=== PATIENT | male | born 1960 ===

== ENCOUNTER 2016-09-25 18:27 | Inpatient (IN) | payer MEDICAID ==
[2016-09-25 18:52] VITALS: BMI 25.7
[2016-09-25] MEDS ORDERED: Sodium Chloride 0.9% 1,000 ML IV ONE (19:56)
[2016-09-25] MEDS ORDERED: Albuterol-Ipratrop 3 mg / 0.5 (3 ml) UD INH STA (19:57)
--- NOTE | 2016-09-25 19:59 | C.PDOC ---
History Of Present Illness 56 y/o male referred to ER by Dr. Giles for 3 days of fevers. Patient previously treated as outpatient with Levaquin and Augmentin. Now presents with resulting hypothermia. [place] [facility] [place], with supposedly negative workup. Denies cough, SOB, chest pain, nausea, vomiting, or other associated symptoms. Time Seen by Provider: 09/25/16 19:50 Chief Complaint (Nursing): Fever History Per: Patient History/Exam Limitations: no limitations Onset/Duration Of Symptoms: Days Current Symptoms Are (Timing): Still Present Associated Symptoms: Fever. denies: Cough, Neck Pain, Vomiting, Diarrhea Ear Symptoms: Bilateral: None Recent travel outside of the [place]: No Past Medical History Reviewed: Historical Data, Nursing Documentation, Vital Signs Vital Signs: Last Vital Signs Temp 97.8 F 09/25/16 19:37 Pulse 104 H 09/25/16 22:09 Resp 12 09/25/16 22:09 BP 105/66 09/25/16 22:09 Pulse Ox 100 09/25/16 22:09 - Medical History PMH: HTN, Hypercholesterolemia Surgical History: Appendectomy Family History: States: No Known Family Hx - Social History Hx Alcohol Use: Yes Hx Substance Use: No - Immunization History Hx Tetanus Toxoid Vaccination: No Hx Influenza Vaccination: No Hx Pneumococcal Vaccination: No Review Of Systems Except As Marked, All Systems Reviewed And Found Negative. Constitutional: Positive for: Fever Cardiovascular: Negative for: Chest Pain, Palpitations Respiratory: Negative for: Cough, Shortness of Breath, Wheezing Gastrointestinal: Negative for: Nausea, Vomiting Skin: Negative for: Rash Neurological: Negative for: Headache Physical Exam - Physical Exam Appears: Non-toxic, No Acute Distress Skin: Warm, Dry, Pale Head: Atraumatic, Normacephalic Eye(s): bilateral: Normal Inspection Oral Mucosa: Moist Chest: Symmetrical Cardiovascular: Rhythm Regular Respiratory: No Rales, No Rhonchi, No Wheezing, Other (egophony and decreased breath sounds RL lobe ) Gastrointestinal/Abdominal: Soft, No Tenderness Back: Normal Inspection Extremity: Normal ROM, Capillary Refill (< 2 sec. ) Neurological/Psych: Oriented x3, Normal Speech, Normal Cognition ED Course And Treatment - Laboratory Results Result Diagrams: 09/25/16 20:18 09/25/16 20:18 Lab Interpretation: Abnormal (mild elev glu, flu swab neg.) ECG: Interpreted By Me ECG Rhythm: Sinus Rhythm ECG Interpretation: Normal Rate From EC O2 Sat by Pulse Oximetry: 99 (RA) Pulse Ox Interpretation: Normal - Radiology CXR: Interpreted by Me CXR Interpretation: Yes: Infiltrates (+RLL) Reevaluation Time: 21:39 Reassessment Condition: Improved - Physician Consult Information Outcome Of Conversation: 1819: dw Dr.Kirit Giles- presented pt, asks to adm to Dr. David Almanzar. 1899 and 2129: d/w Dr. David Almanzar, ok to tele obs. Medical Decision Making Medical Decision Making: previously on Augmentin and Levaquin (with diarrhea now) consider refined abx choices as inpt- will defer to Dr. Almanzar Disposition Doctor Will See Patient In The: Hospital Counseled Patient/Family Regarding: Studies Performed, Diagnosis - Disposition Disposition: HOSPITALIZED Disposition Time: 21:30 Condition: GOOD - Clinical Impression Clinical Impression: Pneumonia - Scribe Statement The provider has reviewed the documentation as recorded by the Alissa Osman Provider Scribe Attestation: All medical record entries made by the Scribe were at my direction and personally dictated by me. I have reviewed the chart and agree that the record accurately reflects my personal performance of the history, physical exam, medical decision making, and the department course for this patient. I have also personally directed, reviewed, and agree with the discharge instructions and disposition.
[2016-09-25] MEDS ORDERED: Sodium Chloride 0.9% 1,000 ML ONE (20:22)
[2016-09-25] MEDS ORDERED: Albuterol-Ipratrop 3 mg / 0.5 (3 ml) UD ONE (20:24)
[2016-09-25 20:25] LABS: BASO % 0.5 % (0.0-2.0); EOS # 0.1 K/uL (0.0-0.7); EOS % 0.9 % (0.0-4.0); HEMATOCRIT 30.3 % (35.0-51.0); LYMPH # 0.6 K/uL (1.0-4.3); MEAN CELL VOLUME 77.3 fL (80.0-94.0); MEAN CORPUSCULAR HEMOGLOBIN 25.5 pg (27.0-31.0); MEAN PLATELET VOLUME 8.7 fL (7.2-11.7); MONO # 0.2 K/uL (0.0-0.8); MONO % 3.3 % (0.0-10.0); PLATELET COUNT 265 K/uL (130-400); RED CELL DISTRIBUTION WIDTH 14.9 % (11.5-14.5); WHITE BLOOD COUNT 6.5 K/uL (4.8-10.8)
[2016-09-25 20:32] LABS: CHLORIDE 97 mmol/L (98-107)
[2016-09-25 20:33] LABS: POTASSIUM 3.5 mmol/L (3.6-5.2); SODIUM 133 mmol/L (132-148)
[2016-09-25 20:35] LABS: ALB/GLOB RATIO 0.9 (1.0-2.1); ALKALINE PHOSPHATASE 104 U/L (38-126); ALT/SGPT 130 U/L (21-72); AST/SGOT 253 U/L (17-59); BILIRUBIN,TOTAL 0.9 mg/dL (0.2-1.3); BLOOD UREA NITROGEN 23 mg/dL (9-20); CALCIUM 8.3 mg/dl (8.6-10.4); CARBON DIOXIDE 23 mmol/L (22-30); GFR AFRICAN-AMERICAN > 60; GLUCOSE,RANDOM 178 mg/dL (75-110); TOTAL PROTEIN 7.1 g/dL (6.3-8.3)
[2016-09-25 21:33] LABS: EOSINOPHIL 1 % (0-4); NEUTROPHIL 81 % (50-75); TOTAL CELLS COUNTED 100
[2016-09-25] MEDS ORDERED: Azithromycin 500 MG in Sodium Chloride 0.9% 250 ML IVPB STA (21:52)
[2016-09-25] MEDS ORDERED: cefTRIAXone IV 1 gm in Dextros 50 ML IV ONE (21:52)
[2016-09-25] MEDS ORDERED: cefTRIAXone IV 1 gm in Dextros 50 ML IVPB ONE (21:57)
[2016-09-25] MEDS ORDERED: Azithromycin 500mg/250ML NS 500 MG/250 ML BAG IVPB ONE (22:01)
[2016-09-25 23:05] LABS: IRON 33 ug/dL (49-181)
[2016-09-26 01:03] VITALS: RESP 20
[2016-09-26] MEDS ORDERED: Loperamide Hydrochloride 1 mg/5 ml Cup PO ONE (03:52)
[2016-09-26] MEDS: Saccharomyces Boulardi 250 mg Cap PO SCH ×3 (04:16→18:36)
--- NOTE | 2016-09-26 07:53 | RAD ---
HISTORY: Shortness of breath COMPARISON: 09/13/2016 TECHNIQUE: Chest PA and lateral FINDINGS: LUNGS: Prominent confluent airspace consolidative changes in the right mid to lower lung zone with associated trace right pleural effusion. Biapical pleural thickening with upper lobe granulomatous changes. Diffuse increased interstitial lung markings. Bilateral hilar prominence. PLEURA: As above. CARDIOVASCULAR: Normal. OSSEOUS STRUCTURES: Degenerative changes in the spine and shoulders. VISUALIZED UPPER ABDOMEN: Normal. OTHER FINDINGS: None. IMPRESSION: Prominent confluent airspace consolidative changes in the right mid to lower lung zone with associated trace right pleural effusion. Biapical pleural thickening with upper lobe granulomatous changes. Diffuse increased interstitial lung markings. Bilateral hilar prominence.
[2016-09-26] MEDS ORDERED: Albuterol 0.083% Inhal Sol (2.5 mg/3 mL) UD INH PRN (08:20)
--- NOTE | 2016-09-26 11:04 | CP.PCM.HP ---
History of Present Illness - History of Present Illness History of Present Illness: 56-year-old male referred to ER by Dr. Phipps for 3 days of fevers. Patient previously treated as outpatient with Levaquin and Augmentin. Now presents with resulting hypothermia. Patient reportedly seen at my office 4 days ago, with supposedly negative workup. Patient denies cough, SOB, chest pain, no nausea, vomiting or any other associated symptoms. Present on Admission - Present on Admission Any Indicators Present on Admission: No Past Patient History - Infectious Disease Hx of Infectious Diseases: None - Past Medical History & Family History Past Medical History?: Yes - Past Social History Smoking Status: Former Smoker - CARDIAC Hx Cardiac Disorders: Yes Hx Hypercholesterolemia: Yes Hx Hypertension: Yes - PULMONARY Hx Respiratory Disorders: No - NEUROLOGICAL Hx Neurological Disorder: No - HEENT Hx HEENT Problems: No - RENAL Hx Chronic Kidney Disease: No - ENDOCRINE/METABOLIC Hx Endocrine Disorders: Yes Hx Diabetes Mellitus Type 2: Yes - HEMATOLOGICAL/ONCOLOGICAL Hx Blood Disorders: No Hx Blood Transfusions: No Hx Blood Transfusion Reaction: No - INTEGUMENTARY Hx Dermatological Problems: Yes Other/Comment: ITCHINSS BOTH FEET USES CREAM - MUSCULOSKELETAL/RHEUMATOLOGICAL Hx Musculoskeletal Disorders: No Hx Falls: No - GASTROINTESTINAL Hx Gastrointestinal Disorders: No - GENITOURINARY/GYNECOLOGICAL Hx Genitourinary Disorders: No - PSYCHIATRIC Hx Psychophysiologic Disorder: No Hx Substance Use: No - SURGICAL HISTORY Hx Surgeries: Yes Hx Appendectomy: Yes - ANESTHESIA Hx Anesthesia: Yes Hx Anesthesia Reactions: No Hx Malignant Hyperthermia: No Meds Home Medications: Home Medication List Medication Instructions Recorded Confirmed Type Amoxicillin/Clavulanate [Augmentin 1 tab PO BID #10 tab 09/29/16 Rx 875 MG-125 MG] Fluconazole [Diflucan] 100 mg PO DAILY #4 tab 09/29/16 Rx Allergies/Adverse Reactions: Allergies Allergy/AdvReac Type Severity Reaction Status Date / Time No Known Allergies Allergy Verified 09/25/16 19:42 Physical Exam - Constitutional Appears: Well - Head Exam Head Exam: ATRAUMATIC, NORMAL INSPECTION, NORMOCEPHALIC - Eye Exam Eye Exam: EOMI, Normal appearance, PERRL Pupil Exam: NORMAL ACCOMODATION, PERRL - ENT Exam ENT Exam: Mucous Membranes Moist, Normal Exam - Neck Exam Neck exam: Positive for: Normal Inspection - Respiratory Exam Respiratory Exam: Decreased Breath Sounds - Cardiovascular Exam Cardiovascular Exam: REGULAR RHYTHM, +S1, +S2 - GI/Abdominal Exam GI & Abdominal Exam: Diminished Bowel Sounds, Soft - Rectal Exam Rectal Exam: Deferred Results - Vital Signs Recent Vital Signs: Last Vital Signs Temp 98.7 F 09/26/16 08:00 Pulse 99 H 09/26/16 08:00 Resp 20 09/26/16 08:00 BP 116/78 09/26/16 08:00 Pulse Ox 97 09/26/16 08:00 - Labs Result Diagrams: 09/29/16 08:17 09/29/16 08:17 Labs: Laboratory Results - last 24 hr 09/25/16 09/26/16 22:41 03:40 POC Glucose (mg/dL) 298 H Iron 33 L TIBC 317 % Saturation 10 L Assessment & Plan (1) Pneumonia Status: Acute - Assessment and Plan (Free Text) Plan: Labs and meds reviewed Blood cultures Started on IV fluids Solu-Medrol Azithromycin Ceftriaxone
[2016-09-26] MEDS: (Novolin R) Insulin Human Regular 100 units/ml vial SC SCH ×3 (11:55→21:58)
--- NOTE | 2016-09-26 17:39 | CP.PCM.CON ---
History of Present Illness - History of Present Illness History of Present Illness: 56 y/o male referred to ER by Dr. Giles for 3 days of fevers. Patient previously treated as outpatient with Levaquin and Augmentin. Now presents with resulting hypothermia. Patient reportedly seen at [facility] [place] days ago, with supposedly negative workup. Denies cough, SOB, chest pain, nausea, vomiting, or other associated symptoms. - Medical History PMH: HTN, Hypercholesterolemia Surgical History: Appendectomy Family History: States: No Known Family Hx Review of Systems - Constitutional Constitutional: As Per HPI, Chills, Fatigue, Fever - EENT Eyes: absent: As Per HPI, Blind Spots, Blurred Vision, Change in Vision, Decreased Night Vision, Diplopia, Discharge, Dry Eye, Exophthalmos, Floaters, Irritation, Itchy Eyes, Loss of Peripheral Vision, Pain, Photophobia, Requires Corrective Lenses, Sees Flashes, Spots in Vision, Tunnel Vision, Other Visual Disturbances, Loss of Vision, Other Ears: absent: As Per HPI, Decreased Hearing, Ear Discharge, Ear Pain, Tinnitus, Abnormal Hearing, Disequilibrium, Dizziness, Other Nose/Mouth/Throat: absent: As Per HPI, Epistaxis, Nasal Congestion, Nasal Discharge, Nasal Obstruction, Nasal Trauma, Nose Pain, Post Nasal Drip, Sinus Pain, Sinus Pressure, Bleeding Gums, Change in Voice, Dental Pain, Dry Mouth, Dysphagia, Halitosis, Hoarsness, Lip Swelling, Mouth Lesions, Mouth Pain, Odynophagia, Sore Throat, Throat Swelling, Tongue Swelling, Facial Pain, Neck Pain, Neck Mass, Other - Cardiovascular Cardiovascular: absent: As Per HPI, Acrocyanosis, Chest Pain, Chest Pain at Rest , Chest Pain with Activity, Claudication, Diaphoresis, Dyspnea, Dyspnea on Exertion, Edema, Irregular Heart Rhythm, Pain Radiating to Arm/Neck/Jaw, Leg Edema, Leg Ulcers, Lightheadedness, Orthopnea, Palpitations, Paroxysmal Nocturnal Dyspnea, Pedal Edema, Radiating Pain, Rapid Heart Rate, Slow Heart Rate, Syncope, Other - Respiratory Respiratory: As Per HPI, Cough, Dyspnea. absent: Hemoptysis - Gastrointestinal Gastrointestinal: absent: As Per HPI, Abdominal Pain, Belching, Bloating, Change in Bowel Habits, Change in Stool Character, Coffee Ground Emesis, Constipation, Cramping, Diarrhea, Dyspepsia, Dysphagia, Early Satiety, Excessive Flatus, Fecal Incontinence, Heartburn, Hematemesis, Hematochezia, Loose Stools, Melena, Nausea, Odynophagia, Temesmus, Vomiting, Other - Genitourinary Genitourinary: absent: As Per HPI, Change in Urinary Stream, Difficulty Urinating, Dysuria, Flank Pain, Hematuria, Pyuria, Nocturia, Urinary Incontinence, Urinary Frequency, Urinary Hesitance, Urinary Urgency, Voiding Freq/Small Amts, Freq UTI, Hx Renal/Bladder Calculi, Hx /Renal Surgery, Bladder Distension, Other - Musculoskeletal Musculoskeletal: absent: As Per HPI, Abnormal Gait, Arthralgias, Atrophy, Back Pain, Deformity, Joint Swelling, Limited Range of Motion, Loss of Height, Muscle Cramps, Muscle Weakness, Myalgias, Neck Pain, Numbness, Radiating Pain into Limb, Stiffness, Tingling, Other - Integumentary Integumentary: absent: As Per HPI, Acne, Alopecia, Bleeding Lesions, Change in Hair, Change in Nails, Change in Pigmentation, Changing Lesions, Dry Skin, Erythema, Furuncle, Hirsutism, Lesions, New Lesions, Non-Healing Lesions, Photosensitivity, Pruritus, Rash, Skin Pain, Skin Ulcer, Sores, Striae, Swelling , Unusual Bruising, Wounds, Jaundice, Other - Neurological Neurological: absent: As Per HPI, Abnormal Gait, Abnormal Hearing, Abnormal Movements, Abnormal Speech, Behavioral Changes, Burning Sensations, Confusion, Convulsions, Disequilibrium, Dizziness, Numbness, Focal Weakness, Frequent Falls , Headaches, Lack of Coordination, Loss of Vision, Memory Loss, Paresthesias, Radicular Pain, Restless Legs, Sensory Deficit, Syncope, Tingling, Tremor, Vertigo, Weakness, Other Visual Disturbances, Other - Psychiatric Psychiatric: absent: As Per HPI, Abnormal Sleep Pattern, Anhedonia, Anxiety, Auditory Hallucinations, Behavioral Changes, Change in Appetite, Change in Libido, Confusion, Depression, Difficulty Concentrating, Hallucinations, Homicidal Ideation, Hopelessness, Irritability, Memory Loss, Mood Swings, Panic Attacks, Paranoia, Suicidal Ideation, Visual Hallucinations, Tactile Hallucinations, Other - Endocrine Endocrine: absent: As Per HPI, Change in Body Appearance, Change in Libido, Cold Intolorance, Deepening of Voice, Excessive Sweating, Fatigue, Flushing, Heat Intolorance, Increase in Ring/Shoe/Hat Size, Palpitations, Polydipsia, Polyphagia, Polyuria, Other - Hematologic/Lymphatic Hematologic: absent: As Per HPI, Easy Bleeding, Easy Bruising, Lymphadenopathy, Other Past Patient History - Infectious Disease Hx of Infectious Diseases: None - Past Medical History & Family History Past Medical History?: Yes - Past Social History Smoking Status: Former Smoker - CARDIAC Hx Cardiac Disorders: Yes Hx Hypercholesterolemia: Yes Hx Hypertension: Yes - PULMONARY Hx Respiratory Disorders: No - NEUROLOGICAL Hx Neurological Disorder: No - HEENT Hx HEENT Problems: No - RENAL Hx Chronic Kidney Disease: No - ENDOCRINE/METABOLIC Hx Endocrine Disorders: Yes Hx Diabetes Mellitus Type 2: Yes - HEMATOLOGICAL/ONCOLOGICAL Hx Blood Disorders: No Hx Blood Transfusions: No Hx Blood Transfusion Reaction: No - INTEGUMENTARY Hx Dermatological Problems: Yes Other/Comment: ITCHINSS BOTH FEET USES CREAM - MUSCULOSKELETAL/RHEUMATOLOGICAL Hx Musculoskeletal Disorders: No Hx Falls: No - GASTROINTESTINAL Hx Gastrointestinal Disorders: No - GENITOURINARY/GYNECOLOGICAL Hx Genitourinary Disorders: No - PSYCHIATRIC Hx Psychophysiologic Disorder: No Hx Substance Use: No - SURGICAL HISTORY Hx Surgeries: Yes Hx Appendectomy: Yes - ANESTHESIA Hx Anesthesia: Yes Hx Anesthesia Reactions: No Hx Malignant Hyperthermia: No Meds Allergies/Adverse Reactions: Allergies Allergy/AdvReac Type Severity Reaction Status Date / Time No Known Allergies Allergy Verified 09/25/16 19:42 - Medications Medications: Current Medications Albuterol Sulfate (Albuterol 0.083% Inhal Viki (2.5 Mg/3 Ml) Ud) 2.5 mg INH RQ6 PRN PRN Reason: Wheezing Glimepiride (Amaryl) 1 mg PO DAILY [facility] Last Admin: 09/26/16 11:18 Dose: 1 mg Heparin Sodium (Porcine) (Heparin) 5,000 units SC Q12 [facility] Last Admin: 09/26/16 11:09 Dose: 5,000 units Ceftriaxone Sodium 1 gm/ (Sodium Chloride) 100 mls @ 100 mls/hr IVPB DAILY@ 2100 [facility] Azithromycin 500 mg/ Sodium (Chloride) 250 mls @ 250 mls/hr IVPB Q24H [facility] Insulin Human Regular (Novolin R) 0 unit SC ACHS [facility] PRN Reason: Protocol Last Admin: 09/26/16 11:55 Dose: 4 unit Montelukast Sodium (Singulair) 10 mg PO DAILY [facility] Pneumococcal Polyvalent Vaccine (Pneumovax 23 Vaccine) 0.5 ml IM .ONCE ONE Stop: 09/28/16 10:01 Repaglinide (Prandin) 2 mg PO BID [facility] Rosuvastatin Calcium (Crestor) 5 mg PO HS [facility] Saccharomyces Boulardii (Florastor) 250 mg PO BID [facility] Stop: 09/26/16 18:01 Last Admin: 09/26/16 11:10 Dose: 250 mg Physical Exam - Constitutional Appears: Non-toxic, Chronically Ill - Head Exam Head Exam: ATRAUMATIC, NORMAL INSPECTION, NORMOCEPHALIC - Eye Exam Eye Exam: PERRL. absent: Scleral icterus - ENT Exam ENT Exam: Mucous Membranes Dry, Normal External Ear Exam - Neck Exam Neck exam: Negative for: Lymphadenopathy, Thyromegaly - Respiratory Exam Respiratory Exam: Decreased Breath Sounds, Rhonchi - Cardiovascular Exam Cardiovascular Exam: REGULAR RHYTHM, +S1, +S2 - GI/Abdominal Exam GI & Abdominal Exam: Diminished Bowel Sounds, Soft. absent: Tenderness - Rectal Exam Rectal Exam: Deferred - Exam Exam: NORMAL INSPECTION - Extremities Exam Extremities exam: Positive for: pedal pulses present. Negative for: calf tenderness, pedal edema, tenderness - Back Exam Back exam: absent: CVA tenderness (L), CVA tenderness (R), paraspinal tenderness - Neurological Exam Neurological exam: Alert, CN II-XII Intact, Oriented x3, Reflexes Normal - Psychiatric Exam Psychiatric exam: Normal Mood - Skin Skin Exam: Dry Results - Vital Signs Recent Vital Signs: Last Vital Signs Temp 98.5 F 09/26/16 16:00 Pulse 90 09/26/16 16:00 Resp 20 09/26/16 16:00 BP 128/74 09/26/16 16:00 Pulse Ox 97 09/26/16 16:00 - Labs Result Diagrams: 09/25/16 20:18 09/25/16 20:18 Labs: Laboratory Results - last 24 hr 09/25/16 09/26/16 09/26/16 22:41 03:40 11:05 POC Glucose (mg/dL) 298 H 290 H Iron 33 L TIBC 317 % Saturation 10 L 09/26/16 16:31 POC Glucose (mg/dL) 318 H Iron TIBC % Saturation Assessment & Plan (1) Pneumonia Status: Acute - Assessment and Plan (Free Text) Assessment: persistent fever despite out pt rx r/o atypical pathogen
[2016-09-26] MEDS ORDERED: Tuberculin 5 Units/0.1 ml Inj ID ONE (18:30)
--- NOTE | 2016-09-26 19:11 | CP.PCM.CON ---
Past Patient History - Infectious Disease Hx of Infectious Diseases: None - Past Medical History & Family History Past Medical History?: Yes - Past Social History Smoking Status: Former Smoker - CARDIAC Hx Cardiac Disorders: Yes Hx Hypercholesterolemia: Yes Hx Hypertension: Yes - PULMONARY Hx Respiratory Disorders: No - NEUROLOGICAL Hx Neurological Disorder: No - HEENT Hx HEENT Problems: No - RENAL Hx Chronic Kidney Disease: No - ENDOCRINE/METABOLIC Hx Endocrine Disorders: Yes Hx Diabetes Mellitus Type 2: Yes - HEMATOLOGICAL/ONCOLOGICAL Hx Blood Disorders: No Hx Blood Transfusions: No Hx Blood Transfusion Reaction: No - INTEGUMENTARY Hx Dermatological Problems: Yes Other/Comment: ITCHINSS BOTH FEET USES CREAM - MUSCULOSKELETAL/RHEUMATOLOGICAL Hx Musculoskeletal Disorders: No Hx Falls: No - GASTROINTESTINAL Hx Gastrointestinal Disorders: No - GENITOURINARY/GYNECOLOGICAL Hx Genitourinary Disorders: No - PSYCHIATRIC Hx Psychophysiologic Disorder: No Hx Substance Use: No - SURGICAL HISTORY Hx Surgeries: Yes Hx Appendectomy: Yes - ANESTHESIA Hx Anesthesia: Yes Hx Anesthesia Reactions: No Hx Malignant Hyperthermia: No Meds Allergies/Adverse Reactions: Allergies Allergy/AdvReac Type Severity Reaction Status Date / Time No Known Allergies Allergy Verified 09/25/16 19:42 - Medications Medications: Current Medications Albuterol Sulfate (Albuterol 0.083% Inhal Viki (2.5 Mg/3 Ml) Ud) 2.5 mg INH RQ6 PRN PRN Reason: Wheezing Glimepiride (Amaryl) 1 mg PO DAILY [facility] Last Admin: 09/26/16 11:18 Dose: 1 mg Heparin Sodium (Porcine) (Heparin) 5,000 units SC Q12 [facility] Last Admin: 09/26/16 11:09 Dose: 5,000 units Ceftriaxone Sodium 1 gm/ (Sodium Chloride) 100 mls @ 100 mls/hr IVPB DAILY@ 2100 [facility] Azithromycin 500 mg/ Sodium (Chloride) 250 mls @ 250 mls/hr IVPB Q24H [facility] Insulin Human Regular (Novolin R) 0 unit SC ACHS [facility] PRN Reason: Protocol Last Admin: 09/26/16 16:30 Dose: 6 unit Montelukast Sodium (Singulair) 10 mg PO DAILY [facility] Pneumococcal Polyvalent Vaccine (Pneumovax 23 Vaccine) 0.5 ml IM .ONCE ONE Stop: 09/28/16 10:01 Repaglinide (Prandin) 2 mg PO BID [facility] Last Admin: 09/26/16 18:00 Dose: 2 mg Rosuvastatin Calcium (Crestor) 5 mg PO HS [facility] Results - Vital Signs Recent Vital Signs: Last Vital Signs Temp 98.5 F 09/26/16 16:00 Pulse 90 09/26/16 16:00 Resp 20 09/26/16 16:00 BP 128/74 09/26/16 16:00 Pulse Ox 97 09/26/16 16:00 - Labs Result Diagrams: 09/25/16 20:18 09/25/16 20:18 Labs: Laboratory Results - last 24 hr 09/25/16 09/26/16 09/26/16 22:41 03:40 11:05 POC Glucose (mg/dL) 298 H 290 H Iron 33 L TIBC 317 % Saturation 10 L 09/26/16 16:31 POC Glucose (mg/dL) 318 H Iron TIBC % Saturation
[2016-09-26] MEDS: Azithromycin 500 MG in Sodium Chloride 0.9% 250 ML IVPB SCH (22:02)
[2016-09-27] MEDS: (Novolin R) Insulin Human Regular 100 units/ml vial SC SCH ×4 (08:15→21:45)
[2016-09-27 11:22] LABS: BASO % 0.3 % (0.0-2.0); EOS % 0.2 % (0.0-4.0); HEMATOCRIT 30.5 % (35.0-51.0); LYMPH # 0.9 K/uL (1.0-4.3); LYMPH % 11.9 % (20.0-40.0); MEAN CELL VOLUME 76.7 fL (80.0-94.0); MEAN CORPUSCULAR HEMOGLOBIN 25.1 pg (27.0-31.0); MEAN CORPUSCULAR HGB CONC 32.8 g/dL (33.0-37.0); MEAN PLATELET VOLUME 8.5 fL (7.2-11.7); MONO # 0.5 K/uL (0.0-0.8); MONO % 6.7 % (0.0-10.0); RED CELL DISTRIBUTION WIDTH 14.9 % (11.5-14.5); WHITE BLOOD COUNT 7.5 K/uL (4.8-10.8)
[2016-09-27 11:32] LABS: CHLORIDE 102 mmol/L (98-107); SODIUM 134 mmol/L (132-148)
[2016-09-27 11:33] LABS: POTASSIUM 3.7 mmol/L (3.6-5.2)
[2016-09-27 11:35] LABS: ALB/GLOB RATIO 0.8 (1.0-2.1); ALKALINE PHOSPHATASE 84 U/L (38-126); ALT/SGPT 92 U/L (21-72); AST/SGOT 98 U/L (17-59); BILIRUBIN,TOTAL 0.5 mg/dL (0.2-1.3); BLOOD UREA NITROGEN 32 mg/dL (9-20); CARBON DIOXIDE 21 mmol/L (22-30); GFR AFRICAN-AMERICAN > 60; GLUCOSE,RANDOM 294 mg/dL (75-110); TOTAL PROTEIN 5.9 g/dL (6.3-8.3)
[2016-09-27 11:36] LABS: CALCIUM 7.7 mg/dl (8.6-10.4)
--- NOTE | 2016-09-27 12:56 | CP.PCM.PN ---
Subjective - Date & Time of Evaluation Date of Evaluation: 09/27/16 Time of Evaluation: 09:50 - Subjective Subjective: PGY2 Medicine Note - Dr. David Almanzar's service: Patient seen and examined at bedside this AM. Patient is a 56 year old male with PMHx of hyperlpididemia, HTN, DM who came to ER last night for fevers. Patient was having fevers and was being treated outpatient with Augmentin and Levaquin but he continued to have fevers and then had a hypothermic event and was in [facility] [place]. He came here for another fever. No fevers documented in chart. Patient was also coughing. Patient reports dry cough. Patient says he feels better today. Patient denies fever, chills, chest pain, abdominal pain, nausea, vomiting, diarrhea, dysuria. Objective - Vital Signs/Intake and Output Vital Signs (last 24 hours): Temp Pulse Resp BP Pulse Ox 98.5 F 83 20 123/76 98 09/27/16 08:00 09/27/16 08:00 09/27/16 08:00 09/27/16 08:00 09/27/16 08:00 Intake and Output: 09/27/16 09/27/16 06:59 18:59 Intake Total 890 Balance 890 - Medications Medications: Current Medications Albuterol Sulfate (Albuterol 0.083% Inhal Viki (2.5 Mg/3 Ml) Ud) 2.5 mg INH RQ6 PRN PRN Reason: Wheezing Docusate Sodium (Colace) 100 mg PO BID [facility] Last Admin: 09/27/16 12:24 Dose: 100 mg Ferrous Sulfate (Feosol) 325 mg PO DAILY [facility] Last Admin: 09/27/16 12:24 Dose: 325 mg Glimepiride (Amaryl) 1 mg PO DAILY [facility] Last Admin: 09/27/16 09:38 Dose: 1 mg Heparin Sodium (Porcine) (Heparin) 5,000 units SC Q12 [facility] Last Admin: 09/27/16 09:37 Dose: 5,000 units Ceftriaxone Sodium 1 gm/ (Sodium Chloride) 100 mls @ 100 mls/hr IVPB DAILY@ 2100 [facility] Last Admin: 09/26/16 21:59 Dose: 100 mls/hr Azithromycin 500 mg/ Sodium (Chloride) 250 mls @ 250 mls/hr IVPB Q24H [facility] Last Admin: 09/26/16 22:02 Dose: 250 mls/hr Insulin Human Regular (Novolin R) 0 unit SC ACHS [facility] PRN Reason: Protocol Last Admin: 09/27/16 12:21 Dose: 6 unit Montelukast Sodium (Singulair) 10 mg PO DAILY [facility] Last Admin: 09/27/16 09:38 Dose: 10 mg Pneumococcal Polyvalent Vaccine (Pneumovax 23 Vaccine) 0.5 ml IM .ONCE ONE Stop: 09/28/16 10:01 Repaglinide (Prandin) 2 mg PO BID [facility] Last Admin: 09/27/16 09:38 Dose: 2 mg Rosuvastatin Calcium (Crestor) 5 mg PO HS [facility] - Labs Labs: 09/27/16 11:14 09/27/16 11:14 - Constitutional Appears: Non-toxic, No Acute Distress - Head Exam Head Exam: NORMAL INSPECTION - Eye Exam Eye Exam: EOMI - ENT Exam ENT Exam: Mucous Membranes Moist - Respiratory Exam Respiratory Exam: Rhonchi (right lower lobe), NORMAL BREATHING PATTERN. absent : Accessory Muscle Use, Rales, Wheezes, Respiratory Distress - Cardiovascular Exam Cardiovascular Exam: REGULAR RHYTHM, +S1, +S2 - GI/Abdominal Exam GI & Abdominal Exam: Soft, Normal Bowel Sounds. absent: Firm, Guarding, Tenderness - Extremities Exam Extremities Exam: Normal Capillary Refill. absent: Pedal Edema - Neurological Exam Neurological Exam: Alert, Awake, Oriented x3 - Psychiatric Exam Psychiatric exam: Normal Affect, Normal Mood - Skin Skin Exam: Normal Color, Warm Assessment and Plan - Assessment and Plan (Free Text) Assessment: Pneumonia WBC 6.5 Afebrile CXR - prominent confluent airspace consolidative changes in the right mid to lower lung zone with associated trace right pleural effusion. Biapical pleural thickening with upper lobe granulomatous changes. Diffuse increased interstitial lung markings. Bilateral hilar prominences. (please see full report ) ID consult - Dr. Sage - help appreciated Azithromycin 500mg IVPB Q24H Rocephin 1gm IVPB daily Duonebs 2.5mg INH RQ6 PRN wheezing Singulair 10mg PO daily Anemia MCV 77.3 RDW 14.9 Iron 33L TIBC 317 % sat 10L Started ferrous sulfate 325mg PO daily H/O Hyperlipidemia Crestor 5mg PO HS H/O DM Prandin 2mg PO BID [facility] Glimepiride Prophylaxis Hep 5000U SC Q12 Protonix 40mg PO daily
[2016-09-27] MEDS: Pantoprazole 40 mg EC Tab PO SCH (15:15)
--- NOTE | 2016-09-27 18:40 | CP.PCM.PN ---
Subjective - Date & Time of Evaluation Date of Evaluation: 09/27/16 Time of Evaluation: 08:00 - Subjective Subjective: REMAINS AFEBRILE MAY NEED BRONCHOSCOPY PULM ON BOARD PPD PLANTED Objective - Vital Signs/Intake and Output Vital Signs (last 24 hours): Temp Pulse Resp BP Pulse Ox 98.4 F 84 20 135/78 97 09/27/16 16:14 09/27/16 16:14 09/27/16 16:14 09/27/16 16:14 09/27/16 16:14 Intake and Output: 09/27/16 09/27/16 06:59 18:59 Intake Total 890 580 Output Total 0 Balance 890 580 - Medications Medications: Current Medications Albuterol Sulfate (Albuterol 0.083% Inhal Viki (2.5 Mg/3 Ml) Ud) 2.5 mg INH RQ6 PRN PRN Reason: Wheezing Docusate Sodium (Colace) 100 mg PO BID [facility] Last Admin: 09/27/16 18:35 Dose: 100 mg Ferrous Sulfate (Feosol) 325 mg PO DAILY [facility] Last Admin: 09/27/16 12:24 Dose: 325 mg Glimepiride (Amaryl) 1 mg PO DAILY [facility] Last Admin: 09/27/16 09:38 Dose: 1 mg Heparin Sodium (Porcine) (Heparin) 5,000 units SC Q12 [facility] Last Admin: 09/27/16 09:37 Dose: 5,000 units Ceftriaxone Sodium 1 gm/ (Sodium Chloride) 100 mls @ 100 mls/hr IVPB DAILY@ 2100 [facility] Last Admin: 09/26/16 21:59 Dose: 100 mls/hr Azithromycin 500 mg/ Sodium (Chloride) 250 mls @ 250 mls/hr IVPB Q24H [facility] Last Admin: 09/26/16 22:02 Dose: 250 mls/hr Insulin Human Regular (Novolin R) 0 unit SC ACHS [facility] PRN Reason: Protocol Last Admin: 09/27/16 16:30 Dose: 2 unit Montelukast Sodium (Singulair) 10 mg PO DAILY [facility] Last Admin: 09/27/16 09:38 Dose: 10 mg Pantoprazole Sodium (Protonix Ec Tab) 40 mg PO DAILY [facility] Last Admin: 09/27/16 15:15 Dose: 40 mg Pneumococcal Polyvalent Vaccine (Pneumovax 23 Vaccine) 0.5 ml IM .ONCE ONE Stop: 09/28/16 10:01 Repaglinide (Prandin) 2 mg PO BID [facility] Last Admin: 09/27/16 09:38 Dose: 2 mg Rosuvastatin Calcium (Crestor) 5 mg PO HS [facility] - Labs Labs: 09/27/16 11:14 09/27/16 11:14 - Constitutional Appears: Non-toxic, Cachectic, Chronically Ill - Head Exam Head Exam: NORMOCEPHALIC - Eye Exam Eye Exam: PERRL. absent: Scleral icterus - Respiratory Exam Respiratory Exam: Decreased Breath Sounds, Rhonchi - Cardiovascular Exam Cardiovascular Exam: REGULAR RHYTHM, +S1, +S2 - GI/Abdominal Exam GI & Abdominal Exam: Distended, Soft - Rectal Exam Rectal Exam: Deferred - Exam Exam: NORMAL INSPECTION Assessment and Plan (1) Pneumonia Status: Acute - Assessment and Plan (Free Text) Assessment: DR RODRÍGUEZ FOLLOW UP EVAL CONSIDER CT CHEST / ECHO
--- NOTE | 2016-09-27 18:56 | CP.PCM.PN ---
Objective - Vital Signs/Intake and Output Vital Signs (last 24 hours): Temp Pulse Resp BP Pulse Ox 98.4 F 84 20 135/78 97 09/27/16 16:14 09/27/16 16:14 09/27/16 16:14 09/27/16 16:14 09/27/16 16:14 Intake and Output: 09/27/16 09/27/16 06:59 18:59 Intake Total 890 580 Output Total 0 Balance 890 580 - Medications Medications: Current Medications Albuterol Sulfate (Albuterol 0.083% Inhal Viki (2.5 Mg/3 Ml) Ud) 2.5 mg INH RQ6 PRN PRN Reason: Wheezing Docusate Sodium (Colace) 100 mg PO BID [facility] Last Admin: 09/27/16 18:35 Dose: 100 mg Ferrous Sulfate (Feosol) 325 mg PO DAILY [facility] Last Admin: 09/27/16 12:24 Dose: 325 mg Glimepiride (Amaryl) 1 mg PO DAILY [facility] Last Admin: 09/27/16 09:38 Dose: 1 mg Heparin Sodium (Porcine) (Heparin) 5,000 units SC Q12 [facility] Last Admin: 09/27/16 09:37 Dose: 5,000 units Ceftriaxone Sodium 1 gm/ (Sodium Chloride) 100 mls @ 100 mls/hr IVPB DAILY@ 2100 [facility] Last Admin: 09/26/16 21:59 Dose: 100 mls/hr Azithromycin 500 mg/ Sodium (Chloride) 250 mls @ 250 mls/hr IVPB Q24H [facility] Last Admin: 09/26/16 22:02 Dose: 250 mls/hr Insulin Human Regular (Novolin R) 0 unit SC ACHS [facility] PRN Reason: Protocol Last Admin: 09/27/16 16:30 Dose: 2 unit Montelukast Sodium (Singulair) 10 mg PO DAILY [facility] Last Admin: 09/27/16 09:38 Dose: 10 mg Pantoprazole Sodium (Protonix Ec Tab) 40 mg PO DAILY [facility] Last Admin: 09/27/16 15:15 Dose: 40 mg Pneumococcal Polyvalent Vaccine (Pneumovax 23 Vaccine) 0.5 ml IM .ONCE ONE Stop: 09/28/16 10:01 Repaglinide (Prandin) 2 mg PO BID [facility] Last Admin: 09/27/16 18:00 Dose: 2 mg Rosuvastatin Calcium (Crestor) 5 mg PO HS [facility] - Labs Labs: 09/27/16 11:14 09/27/16 11:14
--- NOTE | 2016-09-27 21:50 | CP.PCM.PN ---
Subjective - Date & Time of Evaluation Date of Evaluation: 09/27/16 Time of Evaluation: 09:20 - Subjective Subjective: clinically same Objective - Vital Signs/Intake and Output Vital Signs (last 24 hours): Temp Pulse Resp BP Pulse Ox 98.4 F 84 20 135/78 97 09/27/16 16:14 09/27/16 16:14 09/27/16 16:14 09/27/16 16:14 09/27/16 16:14 Intake and Output: 09/27/16 09/28/16 18:59 06:59 Intake Total 580 Output Total 0 Balance 580 - Medications Medications: Current Medications Albuterol Sulfate (Albuterol 0.083% Inhal Viki (2.5 Mg/3 Ml) Ud) 2.5 mg INH RQ6 PRN PRN Reason: Wheezing Docusate Sodium (Colace) 100 mg PO BID [facility] Last Admin: 09/27/16 18:35 Dose: 100 mg Ferrous Sulfate (Feosol) 325 mg PO DAILY [facility] Last Admin: 09/27/16 12:24 Dose: 325 mg Glimepiride (Amaryl) 1 mg PO DAILY [facility] Last Admin: 09/27/16 09:38 Dose: 1 mg Heparin Sodium (Porcine) (Heparin) 5,000 units SC Q12 [facility] Last Admin: 09/27/16 21:44 Dose: 5,000 units Ceftriaxone Sodium 1 gm/ (Sodium Chloride) 100 mls @ 100 mls/hr IVPB DAILY@ 2100 [facility] Last Admin: 09/27/16 20:54 Dose: 100 mls/hr Azithromycin 500 mg/ Sodium (Chloride) 250 mls @ 250 mls/hr IVPB Q24H [facility] Last Admin: 09/26/16 22:02 Dose: 250 mls/hr Insulin Human Regular (Novolin R) 0 unit SC ACHS [facility] PRN Reason: Protocol Last Admin: 09/27/16 21:45 Dose: Not Given Montelukast Sodium (Singulair) 10 mg PO DAILY [facility] Last Admin: 09/27/16 09:38 Dose: 10 mg Pantoprazole Sodium (Protonix Ec Tab) 40 mg PO DAILY [facility] Last Admin: 09/27/16 15:15 Dose: 40 mg Pneumococcal Polyvalent Vaccine (Pneumovax 23 Vaccine) 0.5 ml IM .ONCE ONE Stop: 09/28/16 10:01 Repaglinide (Prandin) 2 mg PO BID [facility] Last Admin: 09/27/16 18:00 Dose: 2 mg Rosuvastatin Calcium (Crestor) 5 mg PO [facility] Last Admin: 09/27/16 21:43 Dose: 5 mg - Labs Labs: 09/27/16 11:14 09/27/16 11:14 - Constitutional Appears: Well - Head Exam Head Exam: ATRAUMATIC, NORMAL INSPECTION, NORMOCEPHALIC - Eye Exam Eye Exam: EOMI, Normal appearance, PERRL Pupil Exam: NORMAL ACCOMODATION, PERRL - ENT Exam ENT Exam: Mucous Membranes Moist, Normal Exam - Neck Exam Neck Exam: Full ROM, Normal Inspection. absent: Lymphadenopathy - Respiratory Exam Respiratory Exam: Decreased Breath Sounds - Cardiovascular Exam Cardiovascular Exam: REGULAR RHYTHM, +S1, +S2 - GI/Abdominal Exam GI & Abdominal Exam: Soft, Diminished Bowel Sounds - Rectal Exam Rectal Exam: Deferred Assessment and Plan (1) Pneumonia Status: Acute - Assessment and Plan (Free Text) Plan: Continue same as ordered Heparin Albuterol Continue antibiotics Dr. Sage
[2016-09-27] MEDS: Azithromycin 500 MG in Sodium Chloride 0.9% 250 ML IVPB SCH (21:58)
[2016-09-28] MEDS: (Novolin R) Insulin Human Regular 100 units/ml vial SC SCH ×4 (08:10→21:08)
[2016-09-28 08:24] LABS: BASO % 0.1 % (0.0-2.0); EOS # 0.1 K/uL (0.0-0.7); EOS % 0.7 % (0.0-4.0); HEMATOCRIT 32.5 % (35.0-51.0); LYMPH # 1.3 K/uL (1.0-4.3); LYMPH % 16.5 % (20.0-40.0); MEAN CELL VOLUME 76.2 fL (80.0-94.0); MEAN CORPUSCULAR HEMOGLOBIN 24.8 pg (27.0-31.0); MEAN CORPUSCULAR HGB CONC 32.6 g/dL (33.0-37.0); MEAN PLATELET VOLUME 7.7 fL (7.2-11.7); MONO # 0.6 K/uL (0.0-0.8); RED CELL DISTRIBUTION WIDTH 14.2 % (11.5-14.5); WHITE BLOOD COUNT 7.8 K/uL (4.8-10.8)
[2016-09-28 08:41] LABS: CHLORIDE 98 mmol/L (98-107); POTASSIUM 3.6 mmol/L (3.6-5.2); SODIUM 133 mmol/L (132-148)
[2016-09-28 08:43] LABS: ALB/GLOB RATIO 0.9 (1.0-2.1); ALKALINE PHOSPHATASE 92 U/L (38-126); AST/SGOT 123 U/L (17-59); BILIRUBIN,TOTAL 0.8 mg/dL (0.2-1.3); CARBON DIOXIDE 24 mmol/L (22-30); GFR AFRICAN-AMERICAN > 60
[2016-09-28 08:44] LABS: ALT/SGPT 110 U/L (21-72); BLOOD UREA NITROGEN 16 mg/dL (9-20); CALCIUM 7.7 mg/dl (8.6-10.4); GLUCOSE,RANDOM 183 mg/dL (75-110)
[2016-09-28] MEDS: Pantoprazole 40 mg EC Tab PO SCH (09:35)
[2016-09-28] MEDS ORDERED: Pneumococcal 23-Valent Vaccine IM ONE ×2 (10:00→13:00)
--- NOTE | 2016-09-28 13:49 | CT ---
PROCEDURE: CT Chest without contrast HISTORY: pneumonia COMPARISON: None. TECHNIQUE: Contiguous axial images were obtained through the chest without intravenous contrast enhancement. Sagittal and coronal reconstructions were performed. Radiation dose (DLP): 295.75 mGy-cm. This CT exam was performed using one or more of the following dose reduction techniques: Automated exposure control, adjustment of the mA and/or kV according to patient size, and/or use of iterative reconstruction technique. FINDINGS: LUNGS: Extensive consolidation in the right lower lobe. There is ill-defined opacity seen in the posterior segment right upper lobe abutting the major fissure. There is multifocal ill-defined opacities in the left lower lobe and in the left upper lobe including the lingular segment. Most likely this represents bilateral multifocal pneumonia. However, followup to clearing is advised to exclude neoplastic disease. MEDIASTINUM: Unremarkable thoracic aorta. No aneurysm. Normal sized heart. Main pulmonary artery unremarkable. No vascular congestion. There is an mildly enlarged precarinal mediastinal node, up to 2 cm in long axis. Multiple shotty subcentimeter mediastinal nodes are identified. Evaluation of the hilar structures is limited in the absence of intravenous contrast, particularly the right hilum this since the lower lobe consolidation extends directly to the right hilum. PLEURA: Small right pleural effusion with fluid seen posteriorly extending to the apex. No left pleural effusion. BONES: No fracture. No destructive lesion. UPPER ABDOMEN: Grossly unremarkable. OTHER FINDINGS: None. IMPRESSION: Extensive right lower lobe consolidation. Multifocal bilateral ill-defined opacities most likely reflecting multifocal pneumonia. Followup to clearing is advised. Small right pleural effusion. Mild mediastinal lymphadenopathy, nonspecific. This is likely reactive.
--- NOTE | 2016-09-28 16:50 | CP.PCM.PN ---
Subjective - Date & Time of Evaluation Date of Evaluation: 09/28/16 Time of Evaluation: 09:20 - Subjective Subjective: clinically same Objective - Vital Signs/Intake and Output Vital Signs (last 24 hours): Temp Pulse Resp BP Pulse Ox 100.4 F H 83 20 146/80 97 09/28/16 08:00 09/28/16 08:00 09/28/16 08:00 09/28/16 08:00 09/28/16 08:00 Intake and Output: 09/28/16 09/28/16 06:59 18:59 Intake Total 360 600 Balance 360 600 - Medications Medications: Current Medications Albuterol Sulfate (Albuterol 0.083% Inhal Viki (2.5 Mg/3 Ml) Ud) 2.5 mg INH RQ6 PRN PRN Reason: Wheezing Docusate Sodium (Colace) 100 mg PO BID [facility] Last Admin: 09/28/16 09:34 Dose: 100 mg Ferrous Sulfate (Feosol) 325 mg PO DAILY [facility] Last Admin: 09/28/16 09:34 Dose: 325 mg Glimepiride (Amaryl) 1 mg PO DAILY [facility] Last Admin: 09/28/16 09:34 Dose: 1 mg Heparin Sodium (Porcine) (Heparin) 5,000 units SC Q12 [facility] Last Admin: 09/28/16 09:35 Dose: 5,000 units Ceftriaxone Sodium 1 gm/ (Sodium Chloride) 100 mls @ 100 mls/hr IVPB DAILY@ 2100 [facility] Last Admin: 09/27/16 20:54 Dose: 100 mls/hr Azithromycin 500 mg/ Sodium (Chloride) 250 mls @ 250 mls/hr IVPB Q24H [facility] Last Admin: 09/27/16 21:58 Dose: 250 mls/hr Insulin Human Regular (Novolin R) 0 unit SC ACHS [facility] PRN Reason: Protocol Last Admin: 09/28/16 11:59 Dose: 3 unit Montelukast Sodium (Singulair) 10 mg PO DAILY [facility] Last Admin: 09/28/16 09:34 Dose: 10 mg Pantoprazole Sodium (Protonix Ec Tab) 40 mg PO DAILY [facility] Last Admin: 09/28/16 09:35 Dose: 40 mg Repaglinide (Prandin) 2 mg PO BID [facility] Last Admin: 09/28/16 09:34 Dose: 2 mg Rosuvastatin Calcium (Crestor) 5 mg PO HS [facility] Last Admin: 09/27/16 21:43 Dose: 5 mg - Labs Labs: 09/28/16 08:17 09/28/16 08:17 - Constitutional Appears: Well - Head Exam Head Exam: ATRAUMATIC, NORMAL INSPECTION, NORMOCEPHALIC - Eye Exam Eye Exam: EOMI, Normal appearance, PERRL Pupil Exam: NORMAL ACCOMODATION, PERRL - ENT Exam ENT Exam: Mucous Membranes Moist, Normal Exam - Neck Exam Neck Exam: Full ROM, Normal Inspection. absent: Lymphadenopathy - Respiratory Exam Respiratory Exam: Decreased Breath Sounds - Cardiovascular Exam Cardiovascular Exam: REGULAR RHYTHM, +S1, +S2 - GI/Abdominal Exam GI & Abdominal Exam: Soft, Diminished Bowel Sounds - Rectal Exam Rectal Exam: Deferred Assessment and Plan (1) Pneumonia Status: Acute - Assessment and Plan (Free Text) Plan: Continue antibiotics Heparin Accu-Chek Insulin Consults on board Discussed with family about patient condition
[2016-09-28] MEDS: Azithromycin 500 MG in Sodium Chloride 0.9% 250 ML IVPB SCH (22:21)
[2016-09-29] MEDS: (Novolin R) Insulin Human Regular 100 units/ml vial SC SCH ×3 (07:50→16:55)
[2016-09-29 08:30] LABS: BASO # 0.1 K/uL (0.0-0.2); BASO % 0.7 % (0.0-2.0); EOS # 0.1 K/uL (0.0-0.7); EOS % 1.2 % (0.0-4.0); HEMATOCRIT 32.6 % (35.0-51.0); LYMPH # 1.5 K/uL (1.0-4.3); LYMPH % 15.2 % (20.0-40.0); MEAN CELL VOLUME 77.4 fL (80.0-94.0); MEAN CORPUSCULAR HGB CONC 32.2 g/dL (33.0-37.0); MEAN PLATELET VOLUME 7.6 fL (7.2-11.7); MONO # 0.6 K/uL (0.0-0.8); MONO % 6.6 % (0.0-10.0); PLATELET COUNT 430 K/uL (130-400); RED CELL DISTRIBUTION WIDTH 14.5 % (11.5-14.5); WHITE BLOOD COUNT 9.5 K/uL (4.8-10.8)
[2016-09-29 08:41] LABS: CHLORIDE 99 mmol/L (98-107); POTASSIUM 3.6 mmol/L (3.6-5.2); SODIUM 134 mmol/L (132-148)
[2016-09-29 08:43] LABS: GFR AFRICAN-AMERICAN > 60
[2016-09-29 08:44] LABS: ALB/GLOB RATIO 0.9 (1.0-2.1); ALKALINE PHOSPHATASE 89 U/L (38-126); ALT/SGPT 118 U/L (21-72); AST/SGOT 105 U/L (17-59); BILIRUBIN,TOTAL 0.8 mg/dL (0.2-1.3); BLOOD UREA NITROGEN 13 mg/dL (9-20); CALCIUM 7.6 mg/dl (8.6-10.4); CARBON DIOXIDE 21 mmol/L (22-30); GLUCOSE,RANDOM 246 mg/dL (75-110); TOTAL PROTEIN 5.7 g/dL (6.3-8.3)
[2016-09-29] MEDS: Pantoprazole 40 mg EC Tab PO SCH (09:31)
--- NOTE | 2016-09-29 09:49 | CP.PCM.PN ---
Subjective - Date & Time of Evaluation Date of Evaluation: 09/29/16 Time of Evaluation: 09:20 - Subjective Subjective: clinically same Objective - Vital Signs/Intake and Output Vital Signs (last 24 hours): Temp Pulse Resp BP Pulse Ox 97.0 F L 109 H 20 126/80 92 L 09/29/16 07:57 09/29/16 07:57 09/29/16 07:57 09/29/16 07:57 09/29/16 07:57 Intake and Output: 09/29/16 09/29/16 06:59 18:59 Intake Total 600 Balance 600 - Medications Medications: Current Medications Albuterol Sulfate (Albuterol 0.083% Inhal Viki (2.5 Mg/3 Ml) Ud) 2.5 mg INH RQ6 PRN PRN Reason: Wheezing Docusate Sodium (Colace) 100 mg PO BID [facility] Last Admin: 09/29/16 09:31 Dose: 100 mg Ferrous Sulfate (Feosol) 325 mg PO DAILY [facility] Last Admin: 09/29/16 09:31 Dose: 325 mg Glimepiride (Amaryl) 1 mg PO DAILY [facility] Last Admin: 09/29/16 09:31 Dose: 1 mg Heparin Sodium (Porcine) (Heparin) 5,000 units SC Q12 [facility] Last Admin: 09/29/16 09:31 Dose: 5,000 units Ceftriaxone Sodium 1 gm/ (Sodium Chloride) 100 mls @ 100 mls/hr IVPB DAILY@ 2100 [facility] Last Admin: 09/28/16 21:04 Dose: 100 mls/hr Azithromycin 500 mg/ Sodium (Chloride) 250 mls @ 250 mls/hr IVPB Q24H [facility] Last Admin: 09/28/16 22:21 Dose: 250 mls/hr Fluconazole (Diflucan Iv 100 Mg/50 Ml Ns) 50 mls @ 100 mls/hr IVPB Q24H [facility] Last Admin: 09/29/16 09:33 Dose: 100 mls/hr Insulin Human Regular (Novolin R) 0 unit SC ACHS [facility] PRN Reason: Protocol Last Admin: 09/29/16 07:50 Dose: 4 unit Montelukast Sodium (Singulair) 10 mg PO DAILY [facility] Last Admin: 09/29/16 09:31 Dose: 10 mg Pantoprazole Sodium (Protonix Ec Tab) 40 mg PO DAILY [facility] Last Admin: 09/29/16 09:31 Dose: 40 mg Repaglinide (Prandin) 2 mg PO BID [facility] Last Admin: 09/29/16 09:31 Dose: 2 mg Rosuvastatin Calcium (Crestor) 5 mg PO HS [facility] Last Admin: 09/27/16 21:43 Dose: 5 mg - Labs Labs: 09/29/16 08:17 09/29/16 08:17 - Constitutional Appears: Well - Head Exam Head Exam: ATRAUMATIC, NORMAL INSPECTION, NORMOCEPHALIC - Eye Exam Eye Exam: EOMI, Normal appearance, PERRL Pupil Exam: NORMAL ACCOMODATION, PERRL - ENT Exam ENT Exam: Mucous Membranes Moist, Normal Exam - Neck Exam Neck Exam: Full ROM, Normal Inspection. absent: Lymphadenopathy - Respiratory Exam Respiratory Exam: Decreased Breath Sounds - Cardiovascular Exam Cardiovascular Exam: REGULAR RHYTHM, +S1, +S2 - GI/Abdominal Exam GI & Abdominal Exam: Soft, Diminished Bowel Sounds - Rectal Exam Rectal Exam: Deferred Assessment and Plan (1) Pneumonia Status: Acute - Assessment and Plan (Free Text) Plan: Dr. Still Diabetic diet Blood sugar monitoring at home Physical therapy Follow-up in 1 week
[2016-09-29] MEDS ORDERED: Fluconazole IV 100mg/50 ml NS 50 ML IVPB SCH (10:00)
--- NOTE | 2016-09-29 12:01 | CP.PCM.PN ---
Subjective - Date & Time of Evaluation Date of Evaluation: 09/29/16 Time of Evaluation: 12:00 Objective - Vital Signs/Intake and Output Vital Signs (last 24 hours): Temp Pulse Resp BP Pulse Ox 97.0 F L 109 H 20 126/80 92 L 09/29/16 07:57 09/29/16 07:57 09/29/16 07:57 09/29/16 07:57 09/29/16 07:57 Intake and Output: 09/29/16 09/29/16 06:59 18:59 Intake Total 600 Balance 600 - Medications Medications: Current Medications Albuterol Sulfate (Albuterol 0.083% Inhal Viki (2.5 Mg/3 Ml) Ud) 2.5 mg INH RQ6 PRN PRN Reason: Wheezing Docusate Sodium (Colace) 100 mg PO BID [facility] Last Admin: 09/29/16 09:31 Dose: 100 mg Ferrous Sulfate (Feosol) 325 mg PO DAILY [facility] Last Admin: 09/29/16 09:31 Dose: 325 mg Glimepiride (Amaryl) 1 mg PO DAILY [facility] Last Admin: 09/29/16 09:31 Dose: 1 mg Heparin Sodium (Porcine) (Heparin) 5,000 units SC Q12 [facility] Last Admin: 09/29/16 09:31 Dose: 5,000 units Ceftriaxone Sodium 1 gm/ (Sodium Chloride) 100 mls @ 100 mls/hr IVPB DAILY@ 2100 [facility] Last Admin: 09/28/16 21:04 Dose: 100 mls/hr Azithromycin 500 mg/ Sodium (Chloride) 250 mls @ 250 mls/hr IVPB Q24H [facility] Last Admin: 09/28/16 22:21 Dose: 250 mls/hr Fluconazole (Diflucan Iv 100 Mg/50 Ml Ns) 50 mls @ 100 mls/hr IVPB Q24H [facility] Last Admin: 09/29/16 09:33 Dose: 100 mls/hr Insulin Human Regular (Novolin R) 0 unit SC ACHS [facility] PRN Reason: Protocol Last Admin: 09/29/16 07:50 Dose: 4 unit Montelukast Sodium (Singulair) 10 mg PO DAILY [facility] Last Admin: 09/29/16 09:31 Dose: 10 mg Pantoprazole Sodium (Protonix Ec Tab) 40 mg PO DAILY [facility] Last Admin: 09/29/16 09:31 Dose: 40 mg Repaglinide (Prandin) 2 mg PO BID [facility] Last Admin: 09/29/16 09:31 Dose: 2 mg Rosuvastatin Calcium (Crestor) 5 mg PO [facility] Last Admin: 09/27/16 21:43 Dose: 5 mg - Labs Labs: 09/29/16 08:17 09/29/16 08:17
[2016-09-29 13:01] LABS: NEUTROPHIL 81 % (50-75); TOTAL CELLS COUNTED 100
[2016-09-29 17:15] VITALS: BP 111/67; TEMP 98.1
[2016-09-29 18:48] VITALS: PULSE 100; O2SAT 94
--- NOTE | 2016-10-02 23:55 | CARD ---
APPROVED REPORT EKG Measurement Heart [id number] <Conclusion> Normal sinus rhythm Nonspecific T wave abnormality Abnormal ECG
== END 2016-09-29 19:40 | disposition home or self-care (01) | DRG 90 ==
LOC: C.ER 18:27 → C.9E 21:21 → C.3T 22:01
PROVIDERS: ADMIT Internal Medicine Nephrology; ATTEND Internal Medicine Nephrology
DX: J18.9 Pneumonia, unspecified organism (principal); R50.81 Fever presenting with conditions classified elsewhere; I10 Essential (primary) hypertension; E11.9 Type 2 diabetes mellitus without complications; E78.00 Pure hypercholesterolemia, unspecified; Z79.4 Long term (current) use of insulin; Z87.891 Personal history of nicotine dependence

== ENCOUNTER 2017-01-02 08:19 | Day surgery (SDC) | payer MEDICAID ==
[2017-01-02 09:04] VITALS: BMI 25.3
[2017-01-02] MEDS ORDERED: Propofol 10 mg/ml Inj (20 ML) ONE (12:27)
[2017-01-02 12:58] VITALS: TEMP 97.1
[2017-01-02 18:47] VITALS: PULSE 69; RESP 15
[2017-01-02 18:50] VITALS: BP 116/75; O2SAT 99
== END 2017-01-02 13:50 | disposition home or self-care (01) ==
LOC: C.ENDO 08:19
PROVIDERS: ATTEND Internal Medicine Gastroenterology
DX: K29.50 Unspecified chronic gastritis without bleeding (principal); D50.9 Iron deficiency anemia, unspecified
CPT/HCPCS: 43239; 82948; 88305; 88313; 88342; J2704

== ENCOUNTER 2017-03-13 07:45 | Day surgery (SDC) | payer MEDICAID ==
[2017-03-04 09:13] VITALS: BMI 24.2
[~2017-03-13 07:45] MED LIST: Ciprofloxacin 0.3% OPTH SOLN OD SCH; Flurbiprofen 0.03% Opht SOLN OD SCH; Lactated Ringer's 500 ML IV ONE; Phenylephrine 2.5% Opht Soln OD SCH; Tropicamide 1% Opht SOLUTION OD SCH; acetaZOLAMIDE 500 mg SR Cap PO ONE
[2017-03-13] MEDS ORDERED: Lactated Ringer's 500 ML IV ONE ×2 (09:03→11:40)
[2017-03-13] MEDS: Hyaluronidase Human, Recombi 150 U/ML VIAL ONE ×2 (11:16→11:46)
[2017-03-13] MEDS: Chondroitin/Hyaluronate Opth Syringe KIT (0.55 ml-0.5 ml) IO ONE ×2 (11:16→11:53)
[2017-03-13] MEDS: Carbachol 0.01% IO ONE ×2 (11:16→11:53)
[2017-03-13] MEDS: Povidone Iodine Ophthalmic 5% Soln ONE ×2 (11:39→11:47)
[2017-03-13] MEDS: Tetracaine 0.5% Ophth (OR ONLY) ONE ×2 (11:39→11:53)
[2017-03-13] MEDS: Tobramycin/Dexamethasone OPHT OINT ONE ×2 (11:40→11:53)
[2017-03-13] MEDS ORDERED: Midazolam 2 MG/2 ML VIAL ONE (11:49)
[2017-03-13] MEDS ORDERED: acetaZOLAMIDE 500 mg SR Cap PO SCH (12:45)
[2017-03-13 12:59] VITALS: BP 140/64; PULSE 83; RESP 19; TEMP 97.7; O2SAT 100
--- NOTE | 2017-03-13 18:32 | OP ---
DATE OF SURGERY: 03/13/2017 PREOPERATIVE DIAGNOSIS: Cataract, right eye. POSTOPERATIVE DIAGNOSIS: Cataract, right eye. PROCEDURE: Phacoemulsification of right eye, and insertion of posterior chamber implant. SURGEON: Franki Smith MD CO-SURGEON: Santosh Short MD GYROSCOPIC INSTRUMENT TESTER: Local IV sedation. PROCEDURE: The patient was brought into the operating room, placed in supine position, prepped and draped in the usual fashion for ophthalmic surgery. Lid speculum was inserted, lids and exposing globe. A side-port incision was made superiorly and inferiorly with a disposable sharp blade. Anterior chamber was filled with Viscoat. A near clear corneal incision was made temporally with a 2.75-mm keratome. Capsulorrhexis was then performed with Utrata forceps. Hydrodissection carried out with balanced salt solution. Nucleus was phacoemulsified. Remaining cortical fragments were removed with a split irrigation and aspiration system. The capsular sac was filled with Provisc. A posterior chamber lens was then injected into the capsular sac and rotated into horizontal position. Provisc was aspirated out of the anterior chamber. The pupil was constricted with Miochol. The wound was found to be watertight. Topical Betadine, Timoptic, and TobraDex ointment and pressure patch were applied. The patient tolerated the procedure well. Franki Smith MD
== END 2017-03-13 13:00 | disposition home or self-care (01) ==
LOC: C.SDS 07:45
PROVIDERS: ATTEND Ophthalmology
DX: H25.11 Age-related nuclear cataract, right eye (principal)
CPT/HCPCS: 66984; 82948; J2250; J3470; J7120; V2632

== ENCOUNTER 2017-06-12 06:28 | Day surgery (SDC) | payer MEDICAID ==
[2017-03-04 09:13] VITALS: BMI 24.2
[2017-06-12] MEDS ORDERED: Lactated Ringer's 500 ML IV ONE ×2 (07:45→10:42)
[2017-06-12] MEDS: Tetracaine 0.5% Ophth (OR ONLY) ONE ×2 (08:03→10:50)
[2017-06-12] MEDS: Povidone Iodine Ophthalmic 5% Soln ONE ×2 (08:09→10:50)
[2017-06-12] MEDS: Lidocaine 2% Inj (20ml) ONE ×2 (08:12→10:55)
[2017-06-12] MEDS: Hyaluronidase Human, Recombi 150 U/ML VIAL ONE ×2 (08:13→10:55)
[2017-06-12] MEDS: Carbachol 0.01% IO ONE ×2 (08:14→11:15)
[2017-06-12] MEDS: Tobramycin/Dexamethasone OPHT OINT ONE ×2 (08:14→11:18)
[2017-06-12] MEDS: Chondroitin/Hyaluronate Opth Syringe KIT (0.55 ml-0.5 ml) IO ONE ×2 (08:14→11:04)
[2017-06-12] MEDS ORDERED: Midazolam 2 MG/2 ML VIAL ONE (09:01)
[2017-06-12 12:07] VITALS: BP 116/71; PULSE 82; RESP 16; TEMP 98.5; O2SAT 100
--- NOTE | 2017-06-12 21:47 | OP ---
PROCEDURE DATE: 06/12/2017 PREOPERATIVE DIAGNOSIS: Cataract, left eye. POSTOPERATIVE DIAGNOSIS: Cataract, left eye. PROCEDURE: Phacoemulsification, left eye, insertion of posterior chamber implant. SURGEON: Franki Smith MD CO-SURGEON: Dr. Short. TYPE OF ANESTHESIA: Local with IV sedation. PROCEDURE: The patient was brought into the operating room, placed in supine position, prepped and draped in the usual fashion for ophthalmic surgery. Lid speculum was inserted, lids and exposing globe. A side-port incision was made superiorly and inferiorly with a disposable sharp blade. Anterior chamber was filled with Viscoat. A near clear corneal incision was made temporally with a 2.75-mm keratome. Capsulorrhexis was then performed with Utrata forceps. Hydrodissection carried out with balanced salt solution. Nucleus was phacoemulsified. Remaining cortical fragments were removed with a split irrigation and aspiration system. The capsular sac was filled with Provisc. A posterior chamber lens was then injected into the capsular sac and rotated into horizontal position. Provisc was aspirated out of the anterior chamber. The pupil was constricted with Miochol. The wound was found to be watertight. Topical Betadine, Timoptic, and TobraDex ointment and pressure patch were applied. The patient tolerated the procedure well. Franki Smith MD
== END 2017-06-12 11:42 | disposition home or self-care (01) ==
LOC: C.SDS 06:28
PROVIDERS: ATTEND Ophthalmology
DX: E11.36 Type 2 diabetes mellitus with diabetic cataract (principal); I10 Essential (primary) hypertension; Z79.899 Other long term (current) drug therapy; Z79.84 Long term (current) use of oral hypoglycemic drugs; Z79.82 Long term (current) use of aspirin; E78.2 Mixed hyperlipidemia
CPT/HCPCS: 66984; 82948; J2250; J3010; J3470; J7120